=== PATIENT | male | born 1950 | race Caucasian/White ===

== ENCOUNTER → 2021-12-21 | Day surgery (SDC) | payer OTHER ==
[~2021-12-21] VITALS: Ht 180.3 cm; Wt 83.1 kg
[~2021-12-21] MED LIST: ASPIRIN EC81 MG PO; ATENOLOL25 MG PO; BRILINTA90 MG PO; COZAAR 25MG TAB25 MG PO; CRESTOR40 MG PO; NITROQUIK SL0.4 MG SL; NORVASC2.5 MG PO; NOVOLIN 70100 UNIT/2 SC; NOVOLOG FL100 UNIT/1 SC; PLAVIX75 MG PO; PROTONIX 40MG T40 MG PO; TRESIBA FL200 UNIT/1 SC
[2021-12-21 08:54] LABS: HCT 47.2 % (42.0-52.0); HGB 15.7 g/dl (13.2-18.0); MCH 27.9 pg (25.0-31.0); MCHC 33.3 g/dL (32.0-36.0); MCV 83.8 fL (78.0-100.0); MPV 10.3 fL (6.0-9.5); RBC 5.63 M/uL (4.70-6.00); RDW 13.1 % (11.5-14.0)
[2021-12-21 09:05] LABS: BILIRUBIN - TOTAL 0.6 mg/dL (0.2-1.0); BUN/CREAT RATIO (CALC) 15.8 RATIO; CREATININE 0.95 mg/dL (0.67-1.17); GLOBULIN (CALCULATION) 3.8 g/dL; POTASSIUM 3.7 mmol/L (3.5-5.1); TOTAL PROTEIN 7.8 g/dL (6.4-8.2)
== END | disposition home or self-care (01) ==
LOC: FAS 07:55
PROVIDERS: Surgery
DX: Z12.11 Encounter for screening for malignant neoplasm of colon (principal); K56.609 Unspecified intestinal obstruction, unspecified as to partial versus complete obstruction; Z86.010 Personal history of colon polyps; I10 Essential (primary) hypertension; E11.9 Type 2 diabetes mellitus without complications; Z95.1 Presence of aortocoronary bypass graft; Z79.4 Long term (current) use of insulin; Z79.82 Long term (current) use of aspirin; Z95.5 Presence of coronary angioplasty implant and graft; Z79.01 Long term (current) use of anticoagulants
CPT/HCPCS: 36415; 80053; 82962; J1610; J2704; J7120